=== PATIENT | female | born 1945 | race Two or more races ===

== ENCOUNTER 2023-08-12 12:01 | Emergency (ER) | payer OTHER ==
[~2023-08-12] VITALS: Ht 157.5 cm; Wt 64.0 kg
[2023-08-12] MEDS ORDERED: TIROSINT75 MCG (12:41)
[2023-08-12] MEDS ORDERED: ZETIA10 MG (12:41)
[2023-08-12] MEDS ORDERED: SERTRALINE HCL50 MG PO (12:42)
[2023-08-12] MEDS ORDERED: COZAAR100 MG (12:42)
[2023-08-12] MEDS ORDERED: CLONAZEPAM1 MG (12:42)
[2023-08-12] MEDS ORDERED: LIPITOR40 M1 PO (12:43)
[2023-08-12] MEDS ORDERED: PANTOPRAZOLE SO40 MG (12:43)
[2023-08-12] MEDS ORDERED: GLIPIZIDE5 MG PO (12:43)
[2023-08-12] MEDS ORDERED: METOPROLOL SUC100 MG (12:44)
[2023-08-12] MEDS ORDERED: GRALISE600 MG (12:45)
== END 2023-08-12 16:19 | disposition home or self-care (01) ==
LOC: ER 12:02
DX: S42.351A Displaced comminuted fracture of shaft of humerus, right arm, initial encounter for closed fracture (principal); W18.39XA Other fall on same level, initial encounter; Y93.89 Activity, other specified; Y92.018 Other place in single-family (private) house as the place of occurrence of the external cause; Z88.2 Allergy status to sulfonamides; E78.00 Pure hypercholesterolemia, unspecified; E03.9 Hypothyroidism, unspecified; I10 Essential (primary) hypertension